=== PATIENT | male | born 1965 | race Caucasian/White ===

== ENCOUNTER 2020-08-03 21:02 | Observation (INO) | payer OTHER ==
[~2020-08-03] VITALS: Ht 177.8 cm; Wt 91.0 kg
[~2020-08-03 21:02] MED LIST: ALBU90OI; AMOCLA875 PO; ASPI325 PO; ASPI81CH PO; ATOR40TA PO; BENZ100A PO; CLOP75 PO; IPRAIS NEB; ISODIN10 PO; METO25ER PO; NEBI10 PO; NITR.4SL SL; Prednisone20 MG PO; RXHYDACE PO; TADA10TA PO; TRAZ50 PO; Ventolin Soln3 ML INH
[2020-08-03] MEDS ORDERED: Ventolin/Prove6.7 GM (21:17)
[2020-08-03] MEDS ORDERED: ROSUVASTATIN CA10 MG PO (21:18)
[2020-08-03] MEDS ORDERED: FLUTICASONE-SA1 EA12 PO (21:18)
[2020-08-03] MEDS ORDERED: LISINOPRIL-HCT1 EAC1 PO (21:19)
[2020-08-03] MEDS ORDERED: TRAZ150T57 PO (21:20)
[2020-08-03] MEDS ORDERED: Bisoprolol Fuma10 MG PO (21:20)
[2020-08-03] MEDS ORDERED: SILDENAFIL CITR20 M1 (21:21)
[2020-08-03] MEDS ORDERED: DEPO-TESTO200 MG/1 M (21:21)
[2020-08-03] MEDS ORDERED: PEPCID40 MG PO (21:22)
[2020-08-03] MEDS ORDERED: OMEP20ER PO (21:22)
[2020-08-03 21:37] LABS: BASOPHILS ABSOLUTE AUTO 0.06 K/mm3 (0.00-0.23); BASOPHILS PERCENT AUTO 1 % (0-2); EOSINOPHILS ABSOLUTE AUTO 0.11 K/mm3 (0.00-0.68); EOSINOPHILS PERCENT AUTO 2 % (0-6); Hematocrit 40.5 % (37.0-53.0); Hemoglobin 14.8 g/dL (13.5-17.5); IMMATURE GRAN ABSOLUTE AUTO 0.02 K/mm3 (0.00-0.10); IMMATURE GRAN PERCENT AUTO 0 % (0-1); LYMPHOCYTES ABSOLUTE AUTO 1.45 K/mm3 (0.84-5.20); LYMPHOCYTES PERCENT AUTO 23 % (21-46); MONOCYTES PERCENT AUTO 10 % (4-13); Mean Corpuscular HGB 34.3 pg (26.0-34.0); Mean Corpuscular HGB Conc 36.5 g/dL (31.5-36.5); Mean Corpuscular Volume 94 fL (80-100); Mean Platelet Volume 8.8 fL (9.1-12.4); NEUTROPHILS ABSOLUTE AUTO 4.09 K/mm3 (1.96-9.15); NEUTROPHILS PERCENT AUTO 65 % (41-73); Platelet Count 232 K/mm3 (150-400); RDW Coefficient Variation 12.2 % (11.7-14.2); RDW Standard Deviation 41.9 fL (35.1-46.3); Red Blood Cell Count 4.32 M/mm3 (4.30-5.90); White Blood Cell Count 6.33 K/mm3 (4.00-11.30)
[2020-08-03 21:51] LABS: Alanine Aminotransfer (ALT/SGP 51 U/L (12-78); Albumin, Blood 3.8 g/dL (3.4-5.0); Albumin/Globulin Ratio 1.1 (0.8-1.8); Alk Phos 79 U/L (50-136); Anion Gap 7 mmol/L (6-16); Aspartate Aminotrans (AST/SGOT 33 U/L (12-37); Bilirubin, Total 0.4 mg/dL (0.1-1.0); Blood Urea Nitrogen 21 mg/dL (8-24); Bun/Creatinine Ratio 11.4 (12.0-20.0); CO2, Blood 25 mmol/L (21-32); Chloride, Blood 104 mmol/L (98-108); Creatinine, Blood 1.85 mg/dL (0.60-1.20); Globulin, Blood 3.5 g/dL (2.2-4.0); Glomerular Filtration Rate 41 (60-); Glucose, Blood 104 mg/dL (70-99); Potassium, Blood 3.8 mmol/L (3.5-5.5); Sodium, Blood 136 mmol/L (136-145); Total Protein, Blood 7.3 g/dL (6.4-8.2); Troponin I <0.015 ng/mL (0.000-0.040)
--- NOTE | 2020-08-04 02:39 | NUR ---
ADMIT NOTE HANDOFF GIVEN FROM ER NURSE TO CHARGE NURSE BALA. I WAS GIVEN HANDOFF AFTER RETURNING FROM BREAK. PT ARRIVED TO FLOOR VIA GURNEY. PERSONAL POSSESSIONS WITH PT. BELLHOP APPLIED TO PT, VERIFIED TELEMETRY IS MONITORING. FLUIDS INFUSING ORDERED. PT ORIENTED TO ROOM. CALL BUTTON WITHIN REACH
--- NOTE | 2020-08-04 04:09 | NUR ---
PT MOVED FROM ROOM 302 TO ROOM 310 [employer] INFORMS ME THAT SHE CANNOT SEE THE SIGNAL FOR TELEMETRY FROM ROOM 302. IT IS KNOWN ON THIS FLOOR THAT 302 IS PROBLEMATIC FOR CARDIAC MONITORING. DUE TO THE HEAVY CARDIAC HISTORY FOR THIS PT AND ADMITTING CONCERNS, I DID REQUEST THIS PT BE MOVED TO ROOM 310. THIS WAS GRANTED. [employer] INFORMS ME THAT THE TELEMETRY SIGNAL IS COMING IN CLEAR FROM ROOM 310
[2020-08-04 04:28] LABS: Anion Gap 4 mmol/L (6-16); Blood Urea Nitrogen 21 mg/dL (8-24); Bun/Creatinine Ratio 13.5 (12.0-20.0); CHOL/HDL RATIO 3.9; CO2, Blood 28 mmol/L (21-32); Calcium, Blood 8.1 mg/dL (8.5-10.1); Chloride, Blood 104 mmol/L (98-108); Cholesterol 160 mg/dL (50-200); Creatinine, Blood 1.56 mg/dL (0.60-1.20); Glomerular Filtration Rate 49 (60-); Glucose, Blood 91 mg/dL (70-99); HDL Cholesterol 41 mg/dL (>39); LDL/HDL RATIO 1.3; Low Density Lipoprotein Chol 53 mg/dL (0-110); Potassium, Blood 3.6 mmol/L (3.5-5.5); Sodium, Blood 136 mmol/L (136-145); Triglycerides 329 mg/dL (30-160); Troponin I <0.015 ng/mL (0.000-0.040); Very Low Density Lipoprot Chol 65 mg/dL (6-32)
--- NOTE | 2020-08-04 05:15 | NUR ---
CTA/WAFER FABRICATOR I HAVE ASSESSED THIS PT. I HAVE READ THE WAFER FABRICATOR'S DOCUMENTATION AND I AGREE. SHIFT SUMMARY IN WAFER FABRICATOR NOTES
[2020-08-04 08:04] LABS: U Amphetamine Screen Not Detected; U Barbituate Screen Not Detected; U Benzodiazapine Screen Not Detected; U Buprenorphine Screen Not Detected; U Cannabinoids Screen DETECTED; U Cocaine Screen Not Detected; U Methadone Screen Not Detected; U Methamphetamine Screen Not Detected; U Opiates Screen Not Detected; U Oxycodone Screen Not Detected; U Phencyclidine Screen Not Detected; U Propoxyphene Screen Not Detected
[2020-08-04 11:33] LABS: SARS-Cov-2 (COVID-19) PCR, MMC NEGATIVE (NEGATIVE)
--- NOTE | 2020-08-04 12:57 | NUR ---
PT AAOX4. INDEPENDENT IN ROOM. 1L NS INFUSED R. FOREARM IV SALINE LOCKED. PT NPO FOR PROCEDURE. LCTA ALL SUAZO. DENIES SOB. HX CAD WITH 4 STENTS. ASTMA, HTN. PT WITH 7/10 CHEST PAIN @0730. NITRO X2 GIVEN WITH GOOD RESULTS. DR. BROWN PRESENT FOR EPISODE DIRECTOR RETIREMENT NOTIFIED. ANGIOGRAM SCHEDULED FOR TODAY WITH TRANFER TO PCU.
--- NOTE | 2020-08-04 16:37 | NUR ---
PT ARRIVED IN THE UNIT FROM THE [facility] POST ANGIO WITH PROX/MID STENT X1 PLACEMENT. PT IS ALERT AND ORIENTED X4. VITALS HRR SINUS AT 70'S, BP SYSTOLIC 110'S, SATS ABOVE 95% ON RA, AFEBRILE. PT DENIES ANY CHEST PAIN/PRESSURE AT THIS TIME. RIGHT RADIAL ACCESS SITE WITH TR BAND IN PLACE 13CC OF AIR INTACT HAD A SMALL HEMATOMA NEXT TO THE SITE, 2ND TR BAND IN PLACE WITH 9CC OF AIR, NO FURTHER BLEEDING NOTED AT THIS TIME, AT BEDSIDE. PT CURRENTLY EATING SNACKS. NO OTHER COMPLAINS. PT ABLE TO MAKE NEEDS KNOWN, CALL LIGHTS IN REACH WILL MONITOR.
--- NOTE | 2020-08-04 19:48 | NUR ---
THIS LN TOOK OVER CARE AT 1845 UPON TAKING VITALS AT 1920, NOTED SLIGHT BLEEDING, PURPLISH POOLING AT TR BAND WINDOW PROXIMAL TO INSERTION SITE, INFLATED 3ML, BLEED STOPPED AND WILL CONTINUE TO MONITOR, VITAL SIGNS ARE STABLE, NO COMPLAINTS OF PAIN.
--- NOTE | 2020-08-04 20:36 | NUR ---
DECREASED TR BAND BY 3ML, NO S/SX OF BLEEDING WILL PROCEED WITH PROTOCOL Q 10 MINS.
--- NOTE | 2020-08-04 23:19 | NUR ---
PATIENT AT 2319 COMPLETE DEFLATION OF TR BAND, NO S/SX OF BLEEDING WILL REMAIN INTACT AND REMOVED COMPLETELY WITH TRANSPARENT DRESSING ON AT 0019.
--- NOTE | 2020-08-05 00:34 | NUR ---
TR BAND IS REMOVED, GAUZE TRANSPARENT DRESSING APPLIED PATIENT IS RESTING IN BED NO C/O OF PAIN, NO S/SX OF BLEEDING NOTED.
[2020-08-05 05:42] LABS: Albumin, Blood 3.4 g/dL (3.4-5.0); Anion Gap 6 mmol/L (6-16); Blood Urea Nitrogen 19 mg/dL (8-24); Bun/Creatinine Ratio 14.1 (12.0-20.0); CO2, Blood 23 mmol/L (21-32); Calcium, Blood 8.1 mg/dL (8.5-10.1); Chloride, Blood 111 mmol/L (98-108); Creatinine, Blood 1.35 mg/dL (0.60-1.20); Glomerular Filtration Rate 58 (60-); Glucose, Blood 96 mg/dL (70-99); Phosphorus, Blood 2.9 mg/dL (2.5-4.9); Potassium, Blood 3.8 mmol/L (3.5-5.5); Sodium, Blood 140 mmol/L (136-145)
[2020-08-05] MEDS ORDERED: ATOR40TA PO (12:17)
[2020-08-05] MEDS ORDERED: CLOP75 PO (12:18)
[2020-08-05] MEDS ORDERED: FOLI1 PO (12:19)
[2020-08-05] MEDS ORDERED: B-1100 M1 PO (12:19)
--- NOTE | 2020-08-05 13:18 | NUR ---
PATIENT PROVIDED DISCHARGE INFO REGARDING FOLLOW UP PLANS, REASONS TO RETURN TO THE HOSPITAL, MEDICATION INFORMATION, AND POST-ANGIO RADIAL SITE CARE. PATIENT ENDORSED UNDERSTANDING. NO SIGNS OF ACUTE DISTRESS, VSS. ANGIO RADIAL SITE C/D/I, NO SIGNS OF DISCHARGE NOTED. PATIENT DENIES CHEST PAIN/PRESSURE, ALERT AND ORIENTED. PATIENT'S SPOUSE TO PROVIDE RIDE HOME.
== END 2020-08-05 13:10 | disposition home or self-care (01) ==
LOC: ER 21:02 → MEDS 21:03 → ERHOLD 21:03 → MEDS 08-04 01:16 → PCU 08-04 14:20
PROVIDERS: Emergency Medicine; Internal Medicine; Internal Medicine Interventional Cardiology; ADMIT Family Medicine
DX: R07.9 Chest pain, unspecified (principal); I25.110 Atherosclerotic heart disease of native coronary artery with unstable angina pectoris; I10 Essential (primary) hypertension; N17.9 Acute kidney failure, unspecified; E78.5 Hyperlipidemia, unspecified; F10.10 Alcohol abuse, uncomplicated; J45.909 Unspecified asthma, uncomplicated; Z20.822 Contact with and (suspected) exposure to COVID-19; K21.9 Gastro-esophageal reflux disease without esophagitis; Z72.0 Tobacco use; Z95.5 Presence of coronary angioplasty implant and graft; Z79.01 Long term (current) use of anticoagulants
CPT/HCPCS: 36415; 71046; 76937; 80048; 80053; 80061; 80069; 84484; 85025; 85347; 85379; 93005; 93010; 93454; 94640; 94760; 99152; 99153; 99285-25; A9270; C1725; C1769; C1874; C1887; C1894; C9600; G0378; J1644; J2250; J2370; J3010; J7030; Q9967; U0004